=== PATIENT | female | born 1950 | race Caucasian/White ===

== ENCOUNTER 2024-11-27 13:52 | Outpatient (CLI) | payer BC ==
[~2024-11-27 13:52] MED LIST: Iopamidol-370 76% 500 ML MDV (1 ML CHARGE) ONE
== END 2024-11-27 13:53 | disposition home or self-care (01) ==
LOC: CT 13:52
PROVIDERS: ATTEND Thoracic Surgery (Cardiothoracic Vascular Surgery)
DX: I70.209 Unspecified atherosclerosis of native arteries of extremities, unspecified extremity (principal); I74.5 Embolism and thrombosis of iliac artery
CPT/HCPCS: 36415; 75635; 82565

== ENCOUNTER 2025-05-16 13:34 | Outpatient (CLI) | payer BC | END 2025-05-16 13:35 | disposition home or self-care (01) | LOC: BICRAD 13:34 | PROVIDERS: ATTEND Orthopaedic Surgery | DX: M54.50 Low back pain, unspecified (principal); M47.816 Spondylosis without myelopathy or radiculopathy, lumbar region; Z98.890 Other specified postprocedural states | CPT/HCPCS: 72100 ==